=== PATIENT | female | born 1965 | race Caucasian/White ===

== ENCOUNTER → 2017-04-30 | Outpatient (CLI) | payer OTHER ==
[~2017-04-30] MED LIST: DICLOFENAC SODI75 MG PO; FOLIC ACID1 MG PO; KLOR-CON M1010 MEQ PO; LAC PO; LEVAQUIN750 MG PO; LEVOTHYROXIN0.075 M2 PO; MAG PO; MECLIZINE25 M3 PO; METHOTREXATE2.5 M2 PO; PROTONIX20 MG PO
[2017-04-30 13:51] LABS: ALBUMIN 4.2 g/dL (3.4-5.0); BILIRUBIN TOTAL 0.71 mg/dL (0.20-1.00); C REACTIVE PROTEIN 0.3 mg/dL (<=0.9); CALCIUM 9.3 mg/dL (8.5-10.1); CARBON DIOXIDE 29.2 mmol/L (21-32); CREATININE SERUM 1.7 mg/dL (0.6-1.0); POTASSIUM SERUM 3.1 mmol/L (3.5-5.1)
[2017-04-30 14:02] LABS: URIC ACID 8.5 mg/dL (2.6-6.0)
[2017-04-30 14:07] LABS: BASOPHIL % 0.2 % (0-2); PLATELET COUNT 328 x10^3mcL (130-400); RED CELL DISTRIBUTION WIDTH 16.4 % (11.5-14.5)
== END | disposition home or self-care (01) ==
LOC: LB 12:09
DX: M06.9 Rheumatoid arthritis, unspecified (principal)
CPT/HCPCS: 86200; 86431; 86480

== ENCOUNTER 2017-05-31 06:03 | Day surgery (SDC) | payer OTHER ==
[2017-05-29 12:46] LABS: BASOPHIL % 0.6 % (0-2); PLATELET COUNT 434 x10^3mcL (130-400); RED CELL DISTRIBUTION WIDTH 17.5 % (11.5-14.5)
[2017-05-29 12:54] LABS: CALCIUM 9.1 mg/dL (8.5-10.1); CARBON DIOXIDE 32.5 mmol/L (21-32); CREATININE SERUM 1.6 mg/dL (0.6-1.0); POTASSIUM SERUM 3.4 mmol/L (3.5-5.1)
[~2017-05-31] VITALS: Ht 167.6 cm; Wt 96.2 kg
[2017-05-31 07:13] VITALS: BP 142/78
[2017-05-31 10:26] VITALS: BP 132/70
== END 2017-05-31 10:15 | disposition home or self-care (01) ==
LOC: DS 06:03 → OR 08:30 → DS 10:15
PROVIDERS: Ophthalmology
PROC: 08RJ3JZ Replacement of Right Lens with Synthetic Substitute, Percutaneous Approach (ICD-10-PCS; principal; 2017-05-31 08:30)
DX: H25.091 Other age-related incipient cataract, right eye (principal); M06.9 Rheumatoid arthritis, unspecified
CPT/HCPCS: C1780; J2250; J3010; J7040

== ENCOUNTER → 2017-07-04 | Outpatient (CLI) | payer OTHER ==
[2017-07-04 10:09] LABS: BASOPHIL % 0.7 % (0-2); PLATELET COUNT 327 x10^3mcL (130-400)
[2017-07-04 10:17] LABS: RED CELL DISTRIBUTION WIDTH 15.6 % (11.5-14.5)
[2017-07-04 10:20] LABS: ALBUMIN 3.7 g/dL (3.4-5.0); BILIRUBIN TOTAL 0.61 mg/dL (0.20-1.00); C REACTIVE PROTEIN 1.9 mg/dL (<=0.9); CALCIUM 8.9 mg/dL (8.5-10.1); CARBON DIOXIDE 28.9 mmol/L (21-32); CHOLESTEROL/HDL RATIO 3.7; CREATININE SERUM 1.2 mg/dL (0.6-1.0); POTASSIUM SERUM 3.6 mmol/L (3.5-5.1); TOTAL PROTEIN, SERUM 8.1 g/dL (6.4-8.2); URIC ACID 7.8 mg/dL (2.6-6.0)
[2017-07-04 11:32] LABS: ERYTHROCYTE SED RATE 31 mm/hr (0-30)
== END | disposition home or self-care (01) ==
LOC: LB 09:27
DX: M06.9 Rheumatoid arthritis, unspecified (principal); I10 Essential (primary) hypertension
CPT/HCPCS: 86200; 86431

== ENCOUNTER → 2017-09-24 | Outpatient (CLI) | payer OTHER ==
[2017-09-24 11:00] LABS: BASOPHIL % 0.9 % (0-2); PLATELET COUNT 327 x10^3mcL (130-400); RED CELL DISTRIBUTION WIDTH 15.9 % (11.5-14.5)
[2017-09-24 11:13] LABS: T3 TOTAL 1.17 ng/mL
[2017-09-24 11:24] LABS: BILIRUBIN TOTAL 0.47 mg/dL (0.20-1.00); C REACTIVE PROTEIN 2.7 mg/dL (<=0.9); CALCIUM 9.5 mg/dL (8.5-10.1); CARBON DIOXIDE 27.6 mmol/L (21-32); CREATININE SERUM 1.1 mg/dL (0.6-1.0); FREE T4 1.04 ng/dL (0.76-1.46); POTASSIUM SERUM 3.8 mmol/L (3.5-5.1)
[2017-09-24 11:31] LABS: TOTAL PROTEIN, SERUM 8.5 g/dL (6.4-8.2)
[2017-09-24 11:46] LABS: ERYTHROCYTE SED RATE 34 mm/hr (0-30)
== END | disposition home or self-care (01) ==
LOC: MI 09:25
DX: M54.5 Low back pain (principal); E03.9 Hypothyroidism, unspecified; M79.7 Fibromyalgia
CPT/HCPCS: 84439

== ENCOUNTER → 2017-11-20 | Outpatient (CLI) | payer OTHER ==
[2017-11-20 10:51] LABS: BASOPHIL % 0.6 % (0-2); PLATELET COUNT 355 x10^3mcL (130-400)
[2017-11-20 10:57] LABS: RED CELL DISTRIBUTION WIDTH 17.4 % (11.5-14.5)
[2017-11-20 11:06] LABS: microscopic required? YES; urine erythrocyte NEGATIVE (NEGATIVE)
[2017-11-20 11:14] LABS: ALBUMIN 3.8 g/dL (3.4-5.0); BILIRUBIN TOTAL 0.5 mg/dL (0.20-1.00); C REACTIVE PROTEIN 2.6 mg/dL (<=0.9); CALCIUM 9.6 mg/dL (8.5-10.1); CARBON DIOXIDE 28.1 mmol/L (21-32); CREATININE SERUM 1.1 mg/dL (0.6-1.0); POTASSIUM SERUM 3.3 mmol/L (3.5-5.1); TOTAL PROTEIN, SERUM 8.1 g/dL (6.4-8.2)
[2017-11-20 11:48] LABS: ERYTHROCYTE SED RATE 40 mm/hr (0-30)
== END | disposition home or self-care (01) ==
LOC: LB 10:11
DX: M06.9 Rheumatoid arthritis, unspecified (principal)